=== PATIENT | male | born 1980 | race Caucasian/White ===

== ENCOUNTER 2016-10-23 09:00 | Inpatient (IN) | payer OTHER ==
--- NOTE | ~2016-10-23 | HP ---
Unit #: [id number] #: [id number] Patient: WILBUR PEARL [id number] [facility] [address] [place] [address] [id number] MR#: [id number] NAME: WILBUR PEARL ROOM: P252 Age: 36 Sex: M Admission Date: 10/23/2016 : 1980 Attending Physician: Dylan Connor M.D. Admitting Physician: Dylan Connor M.D. Primary Care Physician: Generic Doctor Not In System HISTORY AND PHYSICAL NOTE Wilbur is a 36-year-old male admitted to [address] [place] [address] on 10/23/2016. I was present on 10/24/2016 for his H and P. However, he had already been discharged. Dictated by... Jeovanny Galicia TD: 10/25/2016 07:06 JOB #: [id number] HISTORY AND PHYSICAL Page 1 of 1 X BREN BRINK APRN HISTORY AND PHYSICAL
[2016-10-24 09:38] LABS: BASOPHIL% 0.5 % (0-2.5); EOSINOPHIL# 0.1 X10e3 (0-0.7); EOSINOPHIL% 1.7 % (0.0-7.0); HEMATOCRIT 50.1 % (38.0-50.0); HEMOGLOBIN 16.4 gm/dL (13.0-16.0); LYMPHOCYTE# 1.7 X10e3 (1.0-3.5); LYMPHOCYTE% 26.6 % (17.0-45.0); MEAN CELL VOLUME 83.1 FL (83-96); MEAN CORPUSCULAR HEMOGLOBIN 27.1 PG (28-34); MEAN CORPUSCULAR HGB CONC 32.7 g/dL (30-36); MEAN PLATELET VOLUME 8.6 FL (6.5-11.5); MONOCYTE# 0.5 X10e3 (0-1.0); MONOCYTE% 8.5 % (3.0-12.0); NEUTROPHIL# 3.9 X10e3 (1.5-7.1); NEUTROPHIL% 62.7 % (40-75); PLATELET COUNT 274 X10e3 (140-420); RED BLOOD COUNT 6.03 X10e (3.90-5.60); RED CELL DISTRIBUTION WIDTH 15.1 % (11.0-15.5); WHITE BLOOD COUNT 6.2 X10e3 (4.0-10.5)
[2016-10-24 09:42] LABS: DIFF IND NO
[2016-10-24 10:07] LABS: ALBUMIN SERUM 3.9 g/dL (3.5-5.0); BILIRUBIN,TOTAL 1.1 mg/dL (0.2-2.0); BUN/CREATININE RATIO 10.83; CALCIUM SERUM 9.4 mg/dL (8.4-10.2); CREATININE SERUM 1.2 mg/dL (0.6-1.4); GLOM FILT RATE Estimated 76.3 mL/min (>60); POTASSIUM 4.8 mmol/L (3.5-5.1); PROTEIN TOTAL SERUM 6.9 g/dL (6.0-8.3)
[2016-10-24 13:44] LABS: AMPHETAMINE NEG (NEG); BARBITURATES NEG (NEG); BENZODIAZEPINES NEG (NEG); COCAINE NEG (NEG); MARIJUANA NEG (NEG); OPIATES NEG (NEG); TRICYCLIC ANTIDEPRESSANTS NEG (NEG); U METHADONE NEG (NEG)
== END 2016-10-24 12:30 | disposition home or self-care (01) | DRG 881 ==
LOC: P2L 13:40
PROVIDERS: Psychiatry & Neurology Psychiatry
DX: F32.9 Major depressive disorder, single episode, unspecified (principal); R45.851 Suicidal ideations; F41.9 Anxiety disorder, unspecified
CPT/HCPCS: 80053; 80307; 85025